=== PATIENT | male | born 1970 | race Two or more races ===

== ENCOUNTER 2021-04-14 08:27 | Outpatient (CLI) | payer OTHER, SELFPAY ==
--- NOTE | ~2021-04-14 | US_ITS ---
EXAMINATION: US right upper quadrant DATE: 04/14/2021 09:25 INDICATION: Right upper quadrant pain TECHNIQUE: Multiple grayscale and Doppler ultrasound images of the abdomen were obtained. COMPARISON: None available FINDINGS: The head and body of the pancreas are normal. The pancreatic tail is obscured by bowel gas. The liver demonstrates increased echogenicity, heterogenous echotexture, and decreased through trans mission. No surface nodularity. Normal hepatopetal flow in the main portal vein. The gallbladder is n ormal with no abnormal wall thickening, pericholecystic fluid or stones. The normal common bile duct measures 3 mm. There was no sonographic Delaney sign. IMPRESSION: 1. Diffuse hepatic steatosis. Reviewed, dictated and finalized at location A. [facility] [employer]
[2021-04-14 11:05] LABS: HAV RESULT Negative (Negative); Hepatitis B Core IgM Result Negative (Negative); Hepatitis B Surface Antigen Negative (Negative)
[2021-04-14 11:16] LABS: Hepatitis C Virus Antibody Negative (Negative)
== END 2021-04-14 08:28 | disposition home or self-care (01) ==
LOC: ANHIMG 08:29
PROVIDERS: Visit Provider Emergency Medicine
DX: R74.8 Abnormal levels of other serum enzymes (principal); K76.0 Fatty (change of) liver, not elsewhere classified
CPT/HCPCS: 36415; 76705; 80074